=== PATIENT | male | born 2005 | race African-American/Black ===

== ENCOUNTER 2023-05-22 01:21 | Emergency (ER) | payer OTHER, SELFPAY ==
[2023-05-22 01:43] VITALS: BP 156/88; PULSE 106; RESP 14; TEMP 37.1; O2SAT 98; BMI 34.6
--- NOTE | 2023-05-22 01:50 | ECG_ITS ---
Test Reason : UPPER RESP Blood Pressure : / mmHG Vent. Rate : 109 BPM Atrial Rate : 109 BPM P-R Int : 146 ms QRS Dur : 098 ms QT Int : 340 ms P-R-T Axes : 062 062 046 degrees QTc Int : 457 ms Sinus tachycardia Otherwise normal ECG No previous ECGs available Referred By: Generic ED Physician Electronically Signed By:MARIAJOSE RAE
[2023-05-22 02:25] VITALS: BP 146/89; PULSE 107; RESP 18; TEMP 37.2; O2SAT 98
[2023-05-22] MEDS: Acetaminophen 325 MG TABLET 975 MG PO (02:35)
[2023-05-22 02:43] LABS: IDNOW Serial# 6674DD1D; Strep A Nucleic Acid Negative (Negative)
[2023-05-22 02:50] LABS: COVID-19 Test Negative (Negative); IDNOW Serial# 08D9AD1C; IDNOW Serial# 152EDE1D; Influenza A Negative (Negative); Influenza B2 Negative (Negative)
--- NOTE | 2023-05-22 02:56 | ED_ITS ---
HPI - URI/Sore Throat General Chief Complaint: Upper Respiratory Symptoms Stated Complaint: sob,stuffy nose,blurry vision Time Seen by Provider: 05/22/23 02:22 Source: patient Mode of arrival: ambulatory Limitations: no limitations History of Present Illness HPI Narrative: Patient been having cold symptoms since yesterday was feeling hot earlier feeling much better lower occasional cough no other family member sick Related Data Allergies Allergy/AdvReac Type Severity Reaction Status Date / Time amoxicillin [AMOXICILLIN] Allergy Unknown HIVES Verified 05/22/23 01:43 Review of Systems Review of Systems: Yes all other systems are reviewed and are negative [facility] Social History Social History Smoked in Last 30 Days: No Use of substances other than those prescribed or required for medical reasons: No Advance Directives: No Advance Directives Information Provided: No Physical Exam Vital Signs: Vital Signs: Last Vital Signs Temp 98.9 F 05/22/23 02:25 Pulse 107 H 05/22/23 02:25 Resp 18 05/22/23 02:25 BP 146/89 H 05/22/23 02:25 Pulse Ox 98 05/22/23 02:25 O2 Del Method Room Air 05/22/23 02:25 BMI result Body Mass Index 34.6 Appearance: Alert. Oriented X3. No acute distress. ENT: Pharynx normal. Oral Mucosa moist clear nasal discharge Neck: Normal inspection. Neck supple. CVS: Normal heart rate and rhythm. Pulses normal. Respiratory: No respiratory distress. Equal air entry bilateral, no wheezing/rales/rhonchi Abdomen: Soft and nontender. Skin: Skin warm and dry. Normal skin color. Normal skin turgor. Medications Administered Discontinued Medications Generic Name Dose Route Start Last Admin Trade Name Freq PRN Reason Stop Dose Admin Acetaminophen 975 mg 05/22/23 02:27 05/22/23 02:35 Acetaminophen 325 Mg Tablet PO 05/22/23 02:28 975 mg ONCE ONE Administration Medical Decision Making Medical Decision Making [facility] Narrative: Patient with viral URI discharge on supportive treatment COVID flu influenza negative also strep is negative Lab Data [facility] Lab Attestation statement: I reviewed the patient's lab results. Labs: Lab Results 05/22/23 Range/Units 02:28 COVID-19 ([facility]) Negative (Negative) COVID-19 Clin Com See Note Influenza Type A ([facility]) Negative (Negative) Influenza Type B ([facility]) Negative (Negative) Influenza A & B Note See Note S. pyogenes GrpA [facility] Negative (Negative) Discharge Plan Discharge Clinical Impression: Upper respiratory infection Patient Disposition: Home, Self-Care Instructions: Upper Respiratory Infection (ED) Additional Instructions: Drink plenty of fluids DayQuil/NyQuil for cold symptoms Your COVID , influenza and strep are negative Stand Alone Forms: Work/School Release
== END 2023-05-22 03:02 | disposition home or self-care (01) ==
PROVIDERS: Emergency Provider Internal Medicine
DX: J06.9 Acute upper respiratory infection, unspecified (principal); Z11.52 Encounter for screening for COVID-19; Z88.0 Allergy status to penicillin
CPT/HCPCS: 87502; 87635; 87651; 93005; 99283; 99285

== ENCOUNTER → 2023-05-22 01:50 | Outpatient (BNV) | payer OTHER, SELFPAY | PROVIDERS: Emergency Provider Internal Medicine; Visit Provider Internal Medicine | DX: R00.0 Tachycardia, unspecified (principal) | CPT/HCPCS: 93010 ==

== ENCOUNTER 2024-01-10 23:54 | Emergency (ER) | payer MEDICAID, SELFPAY ==
--- NOTE | ~2024-01-10 | XR_ITS ---
EXAMINATION: XR HAND, LEFT CLINICAL INFORMATION: punched wall, deformity and swelling noted. COMPARISON: None available. TECHNIQUE: PA, lateral, and oblique views of the left hand. FINDINGS: There is a transverse fracture through the fifth metacarpal neck with mild apex dorsomedial angulation. No additional fractures. Normal joint spaces. Bone mineralization is normal. Mild soft tissue swelling medially and dorsally. XR/XR hand LT min 3V IMPRESSION: Mildly angulated transverse fracture of the fifth metacarpal neck. Electronically signed by: Alex Howard MD 01/11/2024 12:56 AM EDT
--- NOTE | ~2024-01-10 | XR_ITS ---
EXAMINATION: XR HAND, RIGHT CLINICAL INFORMATION: Trauma. Pain. COMPARISON: None available. TECHNIQUE: PA, lateral, and oblique views of the right hand. FINDINGS: The bones and soft tissues are normal. No fracture. Alignment is anatomic. Joint spaces are maintained. No erosions or soft tissue calcifications. XR/XR hand RT min 3V IMPRESSION: No acute osseous abnormality identified. Electronically signed by: Ulises Calderon MD 01/11/2024 03:47 AM EDT
[2024-01-11 00:05] VITALS: BP 152/101; PULSE 107; RESP 16; TEMP 37.5; O2SAT 100; BMI 34.0
[2024-01-11] MEDS: Ibuprofen 800 MG TABLET PO (00:15)
--- OUTSIDE RECORDS SUMMARY | 2024-01-11 00:42 | XMS_ITS | Continuity of Care Document ---
Author Organization [facility] Address [address] [place] [address]- Care Team Providers Care Orthodontic Laboratory Technician Name Role Phone Monty ZAVALA, Ruth Bonilla Primary Care Physician Encounter [facility] Date(s): 06/23/20 - 07/31/20 [facility] [address] [place] [id number]- Attending Physician: Not on Staff, Attending
--- OUTSIDE RECORDS SUMMARY | 2024-01-11 00:42 | XMS_ITS | Continuity of Care Document ---
Author Organization [facility] Address [address] [place] [address]- Care Team Providers Care Valve Lapper Name Role Phone Ruth Millan MD Primary Care Physician Encounter [facility] Date(s): 07/01/20 - 07/31/20 [facility] [address] [place] [phone] us Attending Physician: Adilia Elizalde Admitting Physician: Adilia Elizalde Referring Physician: Adilia Elizalde
--- NOTE | 2024-01-11 01:16 | ED_ITS ---
HPI - Extremity Problem General Chief complaint: Extremity Injury, Upper Stated complaint: broken finger Time Seen by Provider: 01/11/24 00:55 Source: patient, RN notes reviewed and old records reviewed Mode of arrival: ambulatory Limitations: no limitations History of Present Illness ED Provider: Shi BE Narrative: 18-year-old male presents for evaluation of pain to both hands. He reports that a few hours prior to arrival he was ?punching a wall. ? Patient repeatedly punched the wall with both hands. He has pain mostly to the left hand but also has pain with an abrasion to the right hand He denies any wrist pain His pain is a 6/10 He has no other complaints or concerns at this time, denies any other injury Related Data Allergies Allergy/AdvReac Type Severity Reaction Status Date / Time amoxicillin [AMOXICILLIN] Allergy Unknown HIVES Verified 01/11/24 00:11 Review of Systems Constitutional: Constitutional: Denies body ache(s), Denies chills, Denies fever(s) and Denies frequent falls Eyes: Eyes: Denies blurry vision ENT: Denies vertigo and Denies dizziness Cardiovascular: Cardiovascular: Denies chest pain and Denies dyspnea Respiratory: Respiratory: Denies cough and Denies dyspnea Gastrointestinal: Gastrointestinal: Denies abdominal pain, Denies nausea and Denies vomiting Musculoskeletal: Musculoskeletal: Reports arthralgias, Reports joint swelling and Reports limited range of motion Neurologic: Denies vertigo, Denies dizziness and Denies frequent falls PMFSH Social History Social History Smoked in Last 30 Days: Yes Use of substances other than those prescribed or required for medical reasons: No Advance Directives: No Advance Directives Information Provided: No Do you have a plan to hurt others: No Plan Physical Exam Vital Signs: Vital Signs: Last Vital Signs Temp 98.3 F 01/11/24 02:02 Pulse 80 01/11/24 02:02 Resp 16 01/11/24 02:02 BP 142/88 H 01/11/24 02:02 Pulse Ox 97 01/11/24 02:02 O2 Del Method Room Air 01/11/24 02:02 BMI result Body Mass Index 34.0 Const: General: healthy appearing, comfortable, no acute distress, alert and awake Nutritional Appearance: well nourished Orientation/consciousness: patient oriented x3 HEENT: Head: Yes normocephalic and Yes atraumatic Eyes: Eyelids: Yes eyelids normal Conjunctivae: conjunctivae normal Sclerae: sclerae normal Corneas: corneas normal Pupils: Equal, round and reactive pupils present EOM: EOMs intact bilaterally Neck: Neck: Yes full ROM Resp: Effort & Inspection: normal respiratory effort, able to speak in complete sentences and not labored Cardio: Rate: regular rate Rhythm: regular rhythm Skin: General skin exam: elasticity normal Neuro: General: patient oriented x3 Cranial nerves: Yes CN's II-XII intact bilaterally, Yes Equal, round and reactive pupils present and Yes Bilaterally intact EOM present Cognition (Neuro): normal cognition Extrem: Other: Patient has moderate edema over the left 4th and 5th metacarpals, specifically the 4th and 5th MCP joints. This area is tender to palpation. The patient also has tenderness to the right 4th and 5th metacarpals of the MCP joint. There was no right wrist tenderness bilaterally. The patient has good range of motion to both wrists Medications Administered Discontinued Medications Generic Name Dose Route Start Last Admin Trade Name Freq PRN Reason Stop Dose Admin Ibuprofen 800 mg 01/11/24 00:12 01/11/24 00:15 Ibuprofen 800 Mg Tablet PO 01/11/24 00:13 800 mg ONCE ONE Administration Medical Decision Making Medical Decision Making [facility] Narrative: Patient is right-hand dominant, he punched a wall multiple times with both hands, plan for x-rays of both hands. Differential Diagnosis Differential Diagnoses: The differential diagnosis associated with the presentation includes Hand fracture Contusion Hand sprain Wrist fracture Wrist sprain Independent Interpretation I performed an independent interpretation of an: Plain X-Ray (Agree with Radiology interpretation, distal left 5th metacarpal fracture) Interpretation: No acute fracture of the right hand Radiology Impression Discussion of test interpretation with radiology: I have reviewed the radiologist's reading. Radiologist Impression: FINDINGS: There is a transverse fracture through the fifth metacarpal neck with mild apex dorsomedial angulation. No additional fractures. Normal joint spaces. Bone mineralization is normal. Mild soft tissue swelling medially and dorsally. XR/XR hand LT min 3V IMPRESSION: Mildly angulated transverse fracture of the fifth metacarpal neck. Electronically signed by: Alex Howard MD 01/11/2024 12:56 AM EDT RP Procedures Orthopedic Splinting/Casting Injury #1: Side: left Upper Extremity Injury Location: hand Upper Extremity Immobilizer: ulnar gutter Additional Comments: Patient placed in an ulnar gutter splint for boxer's fracture. The patient tolerated the procedure well, postprocedure neurovascular status intact. Discharge Plan Discharge Clinical Impression: Closed left hand fracture Patient Disposition: Home, Self-Care Instructions: Hand Fracture (ED) Additional Instructions: You have a fracture of the left 5th metacarpal in your hand. Keep the splint in place until you follow-up with orthopedics. You may call tomorrow to schedule a follow up appointment with Dr. Charleen starr. Use ibuprofen/Tylenol for pain Referrals: Charleen Holm MD [Physician] - (left 5th metacarpal fracture) Print Language: Slovak
[2024-01-11 02:02] VITALS: BP 142/88; PULSE 80; RESP 16; TEMP 36.8; O2SAT 97
[2024-01-11 02:28] VITALS: BP 142/88; PULSE 80; RESP 16; TEMP 36.8; O2SAT 97
== END 2024-01-11 02:30 | disposition home or self-care (01) ==
PROVIDERS: Emergency Provider Emergency Medicine
DX: S62.337A Displaced fracture of neck of fifth metacarpal bone, left hand, initial encounter for closed fracture (principal); W22.09XA Striking against other stationary object, initial encounter; Y93.9 Activity, unspecified; Y92.9 Unspecified place or not applicable; Y99.9 Unspecified external cause status
CPT/HCPCS: 29125; 73130; 99283; 99284